=== PATIENT | female | born 1980 | race Caucasian/White ===

== ENCOUNTER → 2016-09-27 | Outpatient (CLI) | payer OTHER ==
[~2016-09-27] MED LIST: ALEVE; AMBIEN5 MG PO; AMOXICILLIN 8751 TAB; ASPIR-LOW81 MG PO; ASPIR-LOX325 MG PO; BACTRIM DS 8001 TAB PO; CIPRO HC OTIC S10 ML OT; DESYREL 50MG50 MG PO; DURAGESIC25 MCG/HR TD; FENTANYL 100MCG TD; FENTANYL 75MCG TOP; HALCION0.25 MG PO; HYDROCODONE/APAP; HYDROXYZINE PAM25 MG PO; LAMICTAL 25MG T25 MG PO; LEVAQUIN; LEVAQUIN 5500 MG/TAB PO; LORTAB 5/500 501 TAB PO; LORTAB 7.5/5001 TAB; LUNESTA2 MG PO; LYRICA 50MG CAP50 MG PO; MEPERIDINE HCL50 MG PO; NAPROXEN EC500 MG PO; NAPROXEN ER500 MG PO; NORCO 325 MG-7.1 TAB PO; OXY IR5 MG PO; OXYCODONE PO; PROTONIX 40MG T40 MG PO; RESTORIL30 MG PO; [UNRECOGNIZED DRUG - OTHER]
== END ==
LOC: COL.RAD 07:10
DX: M43.12 Spondylolisthesis, cervical region (principal)

== ENCOUNTER → 2017-03-03 | Outpatient (CLI) | payer OTHER | LOC: COL.RAD 12:19 | DX: N92.1 Excessive and frequent menstruation with irregular cycle (principal) ==

== ENCOUNTER 2021-05-21 11:48 | Day surgery (SDC) | payer BC ==
[~2021-05-21] VITALS: Ht 172.7 cm; Wt 77.0 kg
[2021-05-21] VITALS (9 sets, daily range): BP systolic 95–120; BP diastolic 46–86; PULSE 75–90; TEMP 97.5–98.4
[~2021-05-21 11:48] MED LIST changes: +AMITRIPTYLINE H10 M1 PO; +ATARAX50 MG; +BUSPAR10 MG PO; +CAMPRAL333 M1; +CYMBALTA 60MG60 MG PO; +LEXAPRO20 MG; +SINEQUAN 1010 MG/CAP PO; +ZANAFLEX CAPSULE2 MG PO; +ZANAFLEX2 MG
--- NOTE | 2021-05-21 12:00 | NUR ---
Pt arrived on unit ambulatory for scheduled surgery. Pt admitted to room 211. Oriented to room, bed and call light within reach. Plan of care reviewed. Consent reviewed and signed. IV start attempted. Additional staff in room to assist with IV placement.
[2021-05-21] MEDS ORDERED: XANAX 0.5MG0.5 MG PO (13:03)
[2021-05-21] MEDS ORDERED: MOTRIN 800800 MG/TAB PO (13:35)
[2021-05-21] MEDS ORDERED: PERCOCET 325 MG1 TA2 PO (13:36)
[2021-05-21 16:58] LABS: HEMATOCRIT 37.9 % (37.0-47.0); HEMOGLOBIN 12.6 g/dl (12.5-16.0)
--- NOTE | 2021-05-21 17:00 | NUR ---
Pt arrived back on unit via bed from the PACU. Report received. Plan of care reviewed with pt. Oriented to room, bed and call light within reach.
[2021-05-21 23:03] LABS: HEMOGLOBIN 11.6 g/dl (12.5-16.0)
[2021-05-22 04:00] VITALS: BP 105/68; PULSE 86; TEMP 97.6
[2021-05-22 05:52] LABS: HEMOGLOBIN 10.8 g/dl (12.5-16.0)
[2021-05-22 06:18] LABS: HEMATOCRIT 32.4 % (37.0-47.0)
[2021-05-22 08:15] VITALS: BP 107/74; PULSE 81; TEMP 97.4
[2021-05-22 12:05] VITALS: BP 101/56; PULSE 89; TEMP 97.4
[2021-05-22 16:53] VITALS: BP 102/51; PULSE 88; TEMP 97.7
[2021-05-22 17:58] LABS: HEMATOCRIT 31.2 % (37.0-47.0); HEMOGLOBIN 10.3 g/dl (12.5-16.0)
[2021-05-22 21:45] VITALS: BP 110/58; PULSE 91; TEMP 97.9
[2021-05-23 02:55] VITALS: BP 91/48; PULSE 74
[2021-05-23 07:30] VITALS: BP 97/47; PULSE 69; TEMP 97.3
[2021-05-23 07:37] LABS: HEMOGLOBIN 10.1 g/dl (12.5-16.0)
[2021-05-23 07:38] LABS: HEMATOCRIT 31.5 % (37.0-47.0)
[2021-05-23 11:25] VITALS: BP 106/58; PULSE 81; TEMP 97.5
[2021-05-23 16:15] VITALS: BP 101/66; PULSE 80; TEMP 97.6
--- NOTE | 2021-05-23 17:52 | NUR ---
Pt reports BM.
[2021-05-23 20:55] VITALS: BP 98/72; PULSE 86; TEMP 98.1
[2021-05-23 21:01] LABS: HEMOGLOBIN 10.2 g/dl (12.5-16.0)
[2021-05-23 21:06] LABS: HEMATOCRIT 31.6 % (37.0-47.0)
[2021-05-24 02:10] VITALS: BP 103/56; PULSE 74; TEMP 97.2
[2021-05-24 08:15] VITALS: BP 95/58; PULSE 82; TEMP 97.4
--- NOTE | 2021-05-24 13:00 | NUR ---
Discharge instructions and follow up care reviewed with pt. Pt verbalized an understanding, agreed with the plan and states no questions or concerns at this time.
== END 2021-05-24 13:15 | disposition home or self-care (01) ==
LOC: SDCO 11:48 → OB 12:29 → SDCO 14:00
PROVIDERS: Obstetrics & Gynecology; Surgery
DX: N94.6 Dysmenorrhea, unspecified (principal); G89.29 Other chronic pain; T14.8XXA Other injury of unspecified body region, initial encounter; N83.02 Follicular cyst of left ovary; M79.7 Fibromyalgia; F17.290 Nicotine dependence, other tobacco product, uncomplicated; F17.210 Nicotine dependence, cigarettes, uncomplicated; F32.A Depression, unspecified; F41.9 Anxiety disorder, unspecified; Z79.899 Other long term (current) drug therapy; Z79.891 Long term (current) use of opiate analgesic
CPT/HCPCS: OP; J1100; J1170; J1885; J2370; J2405; J2704; J3010; J7120